=== PATIENT | male | born 1955 | race Caucasian/White ===

== ENCOUNTER 2018-01-25 07:55 | Emergency (ER) | payer OTHER ==
[~2018-01-25] VITALS: Ht 185.4 cm; Wt 105.0 kg
[~2018-01-25 07:55] MED LIST: ALLOPURINOL100 MG PO; AMLODIPINE5 MG PO; BACTRIM DS1 TAB PO; CIPROFLOXACN500 MG PO; COLCHICINE PO; COREG12.5 MG PO; DIOVAN HCT320 MG/25 PO; DOXYCYC MONO100 M2 PO; DOXYCYCL HYC100 MG PO; INDOCIN25 MG OR; LEVAQUIN750 MG PO; LISINOP/HCTZ1 TA1 PO; LISINOP/HCTZ1 TA2 PO; LORTAB 1010 MG PO; LORTAB 5/3255 MG PO; MELOXICAM15 MG PO; METO25TAB PO; NAPROSYN500 MG PO; PREDNISONE20 MG PO; TENORMIN50 MG PO; VICODIN1 TAB PO
[2018-01-25] MEDS ORDERED: TORADOL PO (09:33)
[2018-01-25] MEDS ORDERED: MEDDOSEPAK PO (09:33)
[2018-01-25 09:34] VITALS: BP 136/80
== END 2018-01-25 09:44 | disposition home or self-care (01) | DRG 556 ==
LOC: ED 07:55
DX: M25.561 Pain in right knee (principal); I10 Essential (primary) hypertension; F17.210 Nicotine dependence, cigarettes, uncomplicated